=== PATIENT | female | born 1995 | race Caucasian/White ===

== ENCOUNTER 2020-02-28 18:44 | Emergency (ER) | payer MEDICAID ==
[~2020-02-28] VITALS: Ht 165.1 cm; Wt 59.0 kg
[2020-02-28 19:40] VITALS: BP 115/59
--- NOTE | 2020-02-28 20:13 | PHYS DOC ---
Past Medical History Past Medical History: Asthma Past Surgical History: No Surgical History Smoking Status: Never Smoker Alcohol Use: None General Adult EDM: Chief Complaint: EYE PROBLEMS HPI: HPI: Patient is a 24 year old female who presents with left lower eyelid swelling and drainage that began yesterday. Patient denies any vision loss. Review of Systems: Review of Systems: Constitutional: Denies fever or chills. [] Eyes: Reports left lower eyelid swelling and drainage. Denies change in visual acuity. [] Musculoskeletal: Denies back pain or joint pain. [] Integument: Denies rash. [] Neurologic: Denies headache, focal weakness or sensory changes. [] Psychiatric: Denies depression or anxiety. [] Heart Score: Risk Factors: Risk Factors: DM, Current or recent (<one month) smoker, HTN, HLP, family history of CAD, obesity. Risk Scores: Score 0 - 3: 2.5% MACE over next 6 weeks - Discharge Home Score 4 - 6: 20.3% MACE over next 6 weeks - Admit for Clinical Observation Score 7 - 10: 72.7% MACE over next 6 weeks - Early Invasive Strategies Physical Exam: PE: Constitutional: Well developed, well nourished, no acute distress, non-toxic appearance. [] Eyes: PERRLA, EOMI, left lower eyelid inner aspect with swelling suspicious of an internal stye. There is slight erythema on the left lower exterior eyelid. There is no obvious fluctuance on the left lower eyelid. Skin: Warm, dry, no erythema, no rash. [] Back: No tenderness, no CVA tenderness. [] Extremities: No tenderness, no cyanosis, no clubbing, ROM intact, no edema. [] Neurologic: Alert and oriented X 3, normal motor function, normal sensory function, no focal deficits noted. [] Psychologic: Affect normal, judgement normal, mood normal. [] Current Patient Data: Vital Signs: Vital Signs Date Time Temp Pulse Resp B/P (MAP) Pulse Ox O2 Delivery O2 Flow Rate FiO2 02/28/20 19:40 97.7 77 18 115/59 (77) 98 Room Air 97.7 EKG: EKG: [] Radiology/Procedures: Radiology/Procedures: [] Course & Med Decision Making: Course & Med Decision Making Pertinent Labs and Imaging studies reviewed. (See chart for details) Patient has an internal stye to the left lower eyelid. Warm compresses recommended to the area. Erythromycin prescription given. Follow-up with terminal press operator in 1 to 2 weeks Ranulfo Disclaimer: Ranulfo Disclaimer: This electronic medical record was generated, in whole or in part, using a voice recognition dictation system. Departure Departure Impression: Primary Impression: Hordeolum internum left lower eyelid Disposition: HOME, SELF-CARE Condition: STABLE Referrals: NO PCP (PCP) ARTHUR NOBLES MD follow up in 1-2 weeks Patient Instructions: Sty Additional Instructions: You have a stye to the left lower eyelid. Apply warm compresses to the area 3 t imes a day and as needed. Use the prescribed erythromycin as ordered. Follow- up with the provided terminal press operator in 1 to 2 weeks if symptoms persist. Maintain very good hand hygiene. Scripts Erythromycin Base (Erythromycin) 1 Gm Oint...g. 1 APPLIC OS Q4HRS W/A, #1 MISC Apply half an inch to the left eye every 4 hours while awake for 7 days Prov: CARTER MCCALLUM APRN 02/28/20 Justicifation of Admission Dx: Justifications for Admission: Justification of Admission Dx: N/A CARTER MCCALLUM APRN Feb 28, 2020 20:13
[2020-02-28] MEDS ORDERED: ERYT1OIN6 OS (20:21)
== END 2020-02-28 20:42 | disposition home or self-care (01) ==
LOC: ER 18:44
DX: H00.025 Hordeolum internum left lower eyelid (principal); J45.909 Unspecified asthma, uncomplicated
CPT/HCPCS: 99283

== ENCOUNTER 2020-04-25 19:20 | Emergency (ER) | payer MEDICAID, OTHER ==
[~2020-04-25] VITALS: Ht 165.1 cm; Wt 62.0 kg
[~2020-04-25 19:20] MED LIST: ERYT1OIN6 OS
[2020-04-25 20:08] VITALS: BP 101/54
[2020-04-25] MEDS ORDERED: LIDOCAINE WITH 8.4% SOD BICARB 3 ML DISP.SYRIN. INJ ONE (20:15)
[2020-04-25] MEDS ORDERED: CEPH500T PO (20:45)
[2020-04-25] MEDS ORDERED: HYDR-3164 PO (20:45)
--- NOTE | 2020-04-25 20:46 | PHYS DOC ---
Past Medical History Past Medical History: Asthma (CARTER MCCALLUM APRN) Past Surgical History: No Surgical History (CARTER MCCALLUM APRN) Smoking Status: Never Smoker Alcohol Use: None (CARTER MCCALLUM APRN) General Adult EDM: Chief Complaint: ABSCESS HPI: HPI: Patient is a 25 year old female who presents to the ED today with left axilla abscess for 5 days. Patient reports putting warm compresses to the region with no improvement. Denies any fever. Reports previous history of buttock abscesses. (CARTER MCCALLUM APRN) Review of Systems: Review of Systems: Constitutional: Denies fever or chills. [] Musculoskeletal: Denies back pain or joint pain. [] Integument: reports left axilla abscess Neurologic: Denies headache, focal weakness or sensory changes. [] Psychiatric: Denies depression or anxiety. [] (CARTER MCCALLUM APRN) Heart Score: Risk Factors: Risk Factors: DM, Current or recent (<one month) smoker, HTN, HLP, family history of CAD, obesity. Risk Scores: Score 0 - 3: 2.5% MACE over next 6 weeks - Discharge Home Score 4 - 6: 20.3% MACE over next 6 weeks - Admit for Clinical Observation Score 7 - 10: 72.7% MACE over next 6 weeks - Early Invasive Strategies (CARTER MCCALLUM APRN) Current Medications: Current Medications Medications (Trade) Dose Ordered Sig/Kayla Start Time Stop Time Status Last Admin Dose Admin Lidocaine HCl (Buffered Lidocaine 1%) 3 ml 1X ONCE 04/25/20 20:15 04/25/20 20:16 04/25/20 20:07 3 ML (CARTER MCCALLUM APRN) Allergies: Allergies: Allergies Coded Allergies Type Severity Reaction Last Updated Verified ciprofloxacin Allergy Intermediate 02/28/20 Yes (CARTER MCCALLUM APRN) Physical Exam: PE: Constitutional: Well developed, well nourished, no acute distress, non-toxic appearance. [] Skin: Warm, dry, left axilla with an indurated area approximately 2 x 1 cm with some fluctuance and surrounding cellulitis. Back: No tenderness, no CVA tenderness. [] Extremities: No tenderness, no cyanosis, no clubbing, ROM intact, no edema. [] Neurologic: Alert and oriented X 3, normal motor function, normal sensory function, no focal deficits noted. [] Psychologic: Affect normal, judgement normal, mood normal. [] (CARTER MCCALLUM APRN) Current Patient Data: Vital Signs: Vital Signs Date Time Temp Pulse Resp B/P (MAP) Pulse Ox O2 Delivery O2 Flow Rate FiO2 04/25/20 19:50 98.3 85 16 101/54 (70) 98 Room Air 98.3 (CARTER MCCALLUM APRN) EKG: EKG: [] (CARTER MCCALLUM APRN) Radiology/Procedures: Radiology/Procedures: Indication: abscess of the left axilla Procedure: The patient was positioned appropriately. Local anesthesia was 1% of buffered lidocaine. An incision was then made over the apex of the lesion with an 11 blade and moderate amount of bloody purulent material was expressed. The drainage cavity was irrigated and covered with sterile gauze. The patients tetanus status updated as needed. The patient tolerated the procedure well. Complications: none.[] (CARTER MCCALLUM APRN) Course & Med Decision Making: Course & Med Decision Making Pertinent Labs and Imaging studies reviewed. (See chart for details) This is a 25-year-old female patient presenting to the ED today with left axilla abscess with surrounding cellulitis. Abscess was drained by me as noted in procedures. Was put on cephalexin. Provided follow-up information. Provided wound care instructions. Tetanus is up-to-date. (CARTER MCCALLUM APRN) Course & Med Decision Making I have reviewed the PA/ASSEMBLER SEMICONDUCTOR's note and Plan of Care. I was available for consultation as needed during the patient's visit in the emergency department. I agree with the clinical impression, plans and disposition. (YVETTE GEORGE MD) Dragon Disclaimer: Dragon Disclaimer: This electronic medical record was generated, in whole or in part, using a voice recognition dictation system. (CARTER MCCALLUM APRN) Departure Departure Impression: Primary Impression: Abscess of axilla, left Additional Impression: Cellulitis of axilla, left Disposition: 01 DC HOME SELF CARE/HOMELESS Condition: STABLE Referrals: NO PCP (PCP) SHADI STEWART MD follow up in 2 weeks Patient Instructions: Abscess, Cellulitis, [id number] Additional Instructions: You have an abscess with cellulitis on the left axilla that was drained in the emergency room. Take the prescribed antibiotics until completed. Follow-up with your own primary care doctor or the provided general surgeon in 2 weeks Scripts Hydrocodone/Apap 5-325 (NORCO 5-325 TABLET) 1 Each Tablet 1 TAB PO Q6HRS, #10 TAB Prov: CARTER MCCALLUM APRN 04/25/20 Cephalexin (CEPHALEXIN) 500 Mg Tablet 1 TAB PO TID, #30 TAB Prov: CARTER MCCALLUM APRN 04/25/20 CARTER MCCALLUM APRN Apr 25, 2020 20:45 YVETTE GEORGE MD Apr 25, 2020 22:25
== END 2020-04-25 20:54 | disposition home or self-care (01) ==
LOC: ER 19:20
DX: L02.412 Cutaneous abscess of left axilla (principal); L03.112 Cellulitis of left axilla; Z88.1 Allergy status to other antibiotic agents; J45.909 Unspecified asthma, uncomplicated
CPT/HCPCS: 10060; 99283; J3490

== ENCOUNTER 2020-12-15 14:18 | Emergency (ER) | payer OTHER ==
[~2020-12-15] VITALS: Ht 165.1 cm; Wt 59.1 kg
[~2020-12-15 14:18] MED LIST changes: +CEPH500T PO; +HYDR-3164 PO
--- NOTE | 2020-12-15 17:26 | RAD ---
Exam Date: 12/15/2020 5:16 PM XR CHEST 2V Indication: Reason: cough / Spl. Instructions: / History: FINDINGS/ IMPRESSION: The cardiac silhouette and pulmonary vasculature are within normal limits. There is no focal consolidation, pleural effusion or pneumothorax. The visualized osseous structures are intact. Electronically signed by: Pierre Dunn MD (12/15/2020 5:24 PM) [facility]
[2020-12-15] MEDS ORDERED: VENTOLIN HFA18 GM INH (17:36)
[2020-12-15] MEDS ORDERED: FLUT10.6 IH (17:36)
[2020-12-15] MEDS ORDERED: PRED50TA PO (17:36)
[2020-12-15] MEDS ORDERED: BENZ100C PO (17:36)
--- NOTE | 2020-12-15 17:36 | PHYS DOC ---
Past Medical History Past Medical History: Asthma Past Surgical History: No Surgical History Smoking Status: Never Smoker Alcohol Use: Occasionally General Adult EDM: Chief Complaint: COUGH HPI: HPI: 25-year-old female past medical history significant for asthma and seasonal allergies, presents the ED with complaints of nonproductive cough, intermittent but worsening for the past 2 weeks with posttussive emesis, runny nose and nasal congestion stating, " my asthma has been acting up the past few weeks, my chest garcia after a cough and I get cramps in my stomach when coughing." No relief with albuterol inhaler or nebulizer treatments at home. Primary care physician at [facility]. No history of prednisone for patient's asthma (pt states "what's that?"). Has never been admitted for her asthma. Works at [employer] (previously [employer]no known h/o Covid but admits exposure is possible. Denies any associated loss of taste or smell, hemoptysis, sore throat, fatigue, myalgias, nausea, vomiting or diarrhea. Reports LMP was last Wednesday. Denies any tobacco use. Review of Systems: Review of Systems: Constitutional: Denies fever or chills. [] Eyes: Denies change in visual acuity or eye discharge HENT: Denies earache or sore throat. [] Respiratory: Denies hemoptysis or shortness of breath or increased work of breathing Cardiovascular: Denies chest pain or syncope GI: Denies abdominal pain, nausea, vomiting, : Denies dysuria or vaginal bleeding Musculoskeletal: Denies back pain or joint pain. [] Integument: Denies rash or diaphoresis Neurologic: Denies headache, focal weakness or sensory changes. [] Psychiatric: Denies depression or anxiety. [] Heart Score: C/O Chest Pain: No Risk Factors: Risk Factors: DM, Current or recent (<one month) smoker, HTN, HLP, family history of CAD, obesity. Risk Scores: Score 0 - 3: 2.5% MACE over next 6 weeks - Discharge Home Score 4 - 6: 20.3% MACE over next 6 weeks - Admit for Clinical Observation Score 7 - 10: 72.7% MACE over next 6 weeks - Early Invasive Strategies Allergies: Allergies: Allergies Coded Allergies Type Severity Reaction Last Updated Verified ciprofloxacin Allergy Intermediate 02/28/20 Yes Physical Exam: PE: Constitutional: Well developed, well nourished, no acute distress, non-toxic appearance. HENT: Normocephalic, atraumatic, Eyes: EOMI, conjunctiva normal, no discharge. Neck: Normal range of motion, supple, Cardiovascular: S1/2 present, regular rhythm Lungs & Thorax: Speaking in full sentences, bilateral equal chest rise, no tachypnea or increased work of breathing, no wheezing/rales/crackles, no expiratory or inspiratory wheezing Abdomen: soft, no tenderness, Skin: Warm, dry, no erythema, no rash. [] Extremities: No tenderness, no cyanosis, no lower extremity edema Neurologic: Alert and oriented X 3, normal motor function, normal sensory function, no focal deficits noted. [] Psychologic: Affect normal, judgement normal, mood normal. [] Current Patient Data: Vital Signs: Vital Signs Date Time Temp Pulse Resp B/P (MAP) Pulse Ox O2 Delivery O2 Flow Rate FiO2 12/15/20 16:12 12 115/75 (88) 98 EKG: EKG: [] Radiology/Procedures: Radiology/Procedures: IMAGING REPORT Signed PATIENT: CHAIM GONZALESUNT: [id number] : 1995 LOCATION: ER AGE: 25 SEX: F EXAM STATUS: REG ER ORD. PHYSICIAN: MACARIO BOLES DO REASON: cough PROCEDURE: CHEST PA & LATERAL Exam Date: 12/15/2020 5:16 PM XR CHEST 2V Indication: Reason: cough / Spl. Instructions: / History: FINDINGS/ IMPRESSION: The cardiac silhouette and pulmonary vasculature are within normal limits. There is no focal consolidation, pleural effusion or pneumothorax. The visualized osseous structures are intact. Electronically signed by: Mark Dunn MD (12/15/2020 5:24 PM) [facility] DICTATED and SIGNED BY: MARK DUNN MD DATE: 12/15/20 [id number] 0 Course & Med Decision Making: Course & Med Decision Making Pertinent Labs and Imaging studies reviewed. (See chart for details) PERC rule for pulmonary embolus 0 criteria No need for further workup, as <2% chance of PE. If no criteria are positive and clinicians pre-test probability is <15%, PERC Rule criteria are satisfied. COVID-19 CRITERIA: The patient was evaluated during the global COVID-19 pandemic, and that diagnosis was suspected/considered upon their initial presentation. Their evaluation, treatment and testing was consistent with current guidelines for patients who present with complaints or symptoms that may be related to COVID-19. Concern for nonproductive cough in the setting of allergy season, cannot exclude Covid, test pending. X-ray with no infiltrates. Will treat for asthma with prednisone, albuterol and Flovent. Will discharge home with strict ED return precautions were given for syncope, chest pain, dyspnea, hemoptysis or neurologic deficits. Encouraged urgent outpatient follow-up with PMD and pulmonology for definitive management. Life-threatening processes were considered but are low suspicion at this time, given history, physical exam and ED workup. Pt was educated on all prescription medications and adverse effects. All patient's questions were answered and pt was stable at time of discharge. Life/limb-threatening differential includes but is not limited to, foreign body, infection/sepsis, congestive heart failure or pulmonary edema, lung cancer intrathoracic mass, bronchoconstriction, asthma/COPD/lung disease exacerbation, pneumothorax or hemothorax, pulmonary emboli, autoimmune/neurologic disease or toxidrome. I spoken with the patient and her caregivers. I explained the patient's condition, diagnoses and treatment plan based on the information available to me at this time. I have answered the patient and her caregiver's questions and addressed any concerns. The patient and her caregivers have a good understanding of patient's diagnosis, condition and treatment plan as can be ex pected at this point. Vital signs have been stable. Patient's condition is stable and appropriate for discharge from the emergency department. Patient will pursue further outpatient evaluation with primary care physician or other designated or consulting physician as outlined in the discharge instructions. The patient and/or caregivers are agreeable to this plan of care and follow-up instructions have been explained in detail. The patient and/or caregivers have received these instructions in written form and have expressed an understanding of the discharge instructions. The patient and/or caregivers are aware that any significant change of condition or worsening of symptoms should prompt immediate return to this or the closest emergency department or call to 911. Ranulfo Disclaimer: Ranulfo Disclaimer: This electronic medical record was generated, in whole or in part, using a voice recognition dictation system. Departure Departure Impression: Primary Impression: Person under investigation for COVID-19 Additional Impressions: Cough Asthma Disposition: HOME / SELF CARE / HOMELESS Condition: STABLE Referrals: NO PCP (PCP) Follow-up with your PCP in 24 to 48 hours or FOLLOW UP WITH FAMILY MEDICINE: [address], [address] [place] [address] Patient Instructions: Asthma, Adult, Cough, Adult Additional Instructions: Return to ED immediately if your oxygen level drops below 90% (purchase a pulse oximetry at a medical supply store), difficulties breathing including rapid breathing or increased work of breathing (skin sucking under ribs), chest pain or stroke-like symptoms (facial droop, speech changes, arm/leg weakness). FOLLOW UP WITH PULMONOLOGY: For definitive management of [facility] [address] [place] [address] EMERGENCY DEPARTMENT GENERAL DISCHARGE INSTRUCTIONS Thank you for coming to [facility] Emergency Department (ED) today and trusting us with you care. We trust that you had a positive experience in our Emergency Department. If you wish to speak to the department management, you may call the Director at [phone]. YOUR FOLLOW UP INSTRUCTIONS ARE FOLLOWS: 1. Do you have a private Doctor? If you do not have a private doctor, please ask for a resource list of physicians or clinics that may be able to assist you with follow up care. 2. The Emergency Physicain has interpreted your x-rays. The X-Ray specialist will also review them. If there is a change in the findings, you will be notified in 48 hours when at all possible. 3. A lab test or culture has been done, your results will be reviewed and you will be notified if you need a change in treatment. ADDITIONAL INSTRUCTIONS AND INFORMATION: 1. Your care today has been supervised by a physician who is specially trained in emergency care. Many problems require more than one evaluation for a complete diagnosis and treatment. We recommend that you schedule your follow up appointment as recommended to ensure complete treatment of you illness or injury. If you are unable to obtain follow up care and continue to have a problem, or if your condition worsens, we recommend that you return to the ED. 2. We are not able to safely determine your condition over the phone nor are we able to give sound medical advice over the phone. For these safety reasons, if you call for medical advice we will ask you to come to the ED for further evaluation. 3. If you have any questions regarding these discharge instructions please call the ED at [phone]. SAFETY INFORMATION: In the interest of safety, wellness, and injury prevention; we encourage you to wear your sealbelt, if you smoke; quite smoking, and we encourage family to use a protective helmet for bicycling and other sporting events that present an increased risk for head injury. IF YOUR SYMPTOMS WORSEN OR NEW SYMPTOMS DEVELOP, OR YOU HAVE CONCERNS ABOUT YOUR CONDITION; OR IF YOUR CONDITION WORSENS WHILE YOU ARE WAITING FOR YOUR FOLLOW UP APPOINTMENT; EITHER CONTACT YOUR PRIMARY CARE DOCTOR, THE PHYSICIAN WHOSE NAME AND NUMBER YOU WERE GIVEN, OR RETURN TO THE ED IMMEDIATELY. Scripts Benzonatate (TESSALON PERLE) 100 Mg Capsule 1 CAP PO TID for cough for 7 Days, #21 CAP Prov: MACARIO BOLES DO 12/15/20 Albuterol Sulfate (VENTOLIN HFA INHALER) 18 Gm Hfa.aer.ad 2 PUFF INH QID for FOR ASTHMA, #1 INHALER 0 Refills Prov: MACARIO BOLES DO 12/15/20 Fluticasone Propionate (FLOVENT 44MCG HFA) 10.6 Gm Aer.w.adap 2 PUFF IH BID for 30 Days, #1 INHALER 0 Refills Prov: MACARIO BOLES DO 12/15/20 Prednisone (PREDNISONE) 50 Mg Tablet 1 TAB PO DAILY for 5 Days, #5 TAB Prov: MACARIO BOLES DO 12/15/20 MACARIO BOLES DO Dec 15, 2020 17:36
[2020-12-15 17:37] VITALS: BP 103/65
--- NOTE | 2020-12-17 08:34 | NUR ---
IP: Informed pt of negative covid test. Pt verbalized understanding.
== END 2020-12-15 18:03 | disposition home or self-care (01) ==
LOC: ER 14:18
DX: R09.89 Other specified symptoms and signs involving the circulatory and respiratory systems (principal); R05 Cough; R09.81 Nasal congestion; J45.909 Unspecified asthma, uncomplicated; Z88.1 Allergy status to other antibiotic agents
CPT/HCPCS: 71046; 99284; U0003; U0005

== ENCOUNTER 2021-06-29 14:30 | Emergency (ER) | payer OTHER ==
[~2021-06-29] VITALS: Ht 165.1 cm; Wt 65.0 kg
[~2021-06-29 14:30] MED LIST changes: +BENZ100C PO; +FLUT10.6 IH; +PRED50TA PO; +VENTOLIN HFA18 GM INH
[2021-06-29 15:40] VITALS: BP 96/61
--- NOTE | 2021-06-29 16:14 | RAD ---
EXAM: 3 views of the left ankle DATE: 06/29/2021 3:56 PM INDICATION: Reason: pain after fall / Spl. Instructions: / History: COMPARISON: No Prior FINDINGS: No acute fracture or dislocation. Ankle mortise is congruent. Talar dome is intact. Joint spaces are preserved without significant degenerative/proliferative change. No significant soft tissue swelling. IMPRESSION: No acute fracture or dislocation. Electronically signed by: Godfrey Suarez MD (06/29/2021 4:11 PM) [facility]
--- NOTE | 2021-06-29 16:38 | PHYS DOC ---
Past Medical History Past Medical History: Asthma Past Surgical History: No Surgical History Smoking Status: Never Smoker Alcohol Use: None General Adult EDM: Chief Complaint: ANKLE PROBLEM HPI: HPI: Patient is a 26-year-old female presents emergency department concerning left ankle pain for the past 4 days after reportedly slipping off a ladder and falling to the ground twisting her ankle 4 days ago while she was at work. Patient reports she has been taking Tylenol for pain and it does not seem to be getting better. Patient states she needs a work excuse for today and tomorrow. Patient denies other physical complaints or physical concerns. Review of Systems: Review of Systems: 14 body systems of review of systems have been reviewed. See HPI for pertinent positives and negative responses, otherwise all other systems are negative, nonpertinent or noncontributory. Constitutional: Negative except as outlined in HPI above. Skin: Negative except as outlined in HPI above. Eyes: Negative except as outlined in HPI above. HENT: Negative except as outlined in HPI above. Respiratory: Negative except as outlined in HPI above. Cardiovascular: Negative except as outlined in HPI above. GI: Negative except as outlined in HPI above. : Negative except as outlined in HPI above. Musculoskeletal: Negative except as outlined in HPI above. Integument: Negative except as outlined in HPI above. Neurologic: Negative except as outlined in HPI above. Endocrine: Negative except as outlined in HPI above. Lymphatic: Negative except as outlined in HPI above. Psychiatric: Negative except as outlined in HPI above. Heart Score: C/O Chest Pain: No Risk Factors: Risk Factors: DM, Current or recent (<one month) smoker, HTN, HLP, family history of CAD, obesity. Risk Scores: Score 0 - 3: 2.5% MACE over next 6 weeks - Discharge Home Score 4 - 6: 20.3% MACE over next 6 weeks - Admit for Clinical Observation Score 7 - 10: 72.7% MACE over next 6 weeks - Early Invasive Strategies Allergies: Allergies: Allergies Coded Allergies Type Severity Reaction Last Updated Verified ciprofloxacin Allergy Intermediate 02/28/20 Yes Physical Exam: PE: Constitutional: Well developed, well nourished, no acute distress, non-toxic appearance. 26-year-old female in no apparent distress. HENT: Normocephalic, atraumatic. Eyes: Conjunctiva normal, no discharge. Neck: Normal range of motion, no stridor. Cardiovascular: No cyanosis appreciated, distal cap refill less than 2 seconds. Lungs & Thorax: Patient is in no respiratory distress, no audible adventitious lung sounds appreciated. Abdomen: Nontender, no abnormalities noted. Skin: Warm, dry, no erythema, no rash. Back: No tenderness, no deformities. Extremities: No tenderness, no cyanosis, no clubbing, ROM intact, no edema. Except for left ankle, pain to palpation of the lateral malleolar skin surfaces, no bruising, no ecchymosis, no deformities, no crepitus cruciated, limited passive range of motion of ankle joint related to patient's complaint of pain, 2+ dorsalis pedis pulses and equal bilaterally, distal cap refill less than 2 seconds, full flexion of the toes appreciated. Neurologic: Alert and oriented X 3, normal motor function, normal sensory function, no focal deficits noted. Psychologic: Affect normal, judgement normal, mood normal. Current Patient Data: Vital Signs: Vital Signs Date Time Temp Pulse Resp B/P (MAP) Pulse Ox O2 Delivery O2 Flow Rate FiO2 06/29/21 15:40 98.2 90 16 96/61 (73) 99 Room Air 98.2 EKG: EKG: [] Radiology/Procedures: Radiology/Procedures: STATUS: REG ER ORD. PHYSICIAN: VIJAYA VELÁSQUEZ APRN REASON: pain after fall PROCEDURE: ANKLE LEFT 3V EXAM: 3 views of the left ankle DATE: 06/29/2021 3:56 PM INDICATION: Reason: pain after fall / Spl. Instructions: / History: COMPARISON: No Prior FINDINGS: No acute fracture or dislocation. Ankle mortise is congruent. Talar dome is intact. Joint spaces are preserved without significant degenerative/proliferative change. No significant soft tissue swelling. IMPRESSION: No acute fracture or dislocation. Electronically signed by: Gdofrey Suarez MD (06/29/2021 4:11 PM) NICOL Course & Med Decision Making: Course & Med Decision Making Pertinent Labs and Imaging studies reviewed. (See chart for details) 26-year-old female, vital signs reviewed, presents to the emergency department concerning left ankle pain for the past 4 days after reported fall and twisting ankle. Physical examination is nonconcerning however patient is asking for work excuse, with patient's explanation of events will order x-ray of left ankle. Left ankle x-ray unremarkable, no fracture per house radiologist interpretation, will Bakari wrap, discussed findings with patient, use of NSAID therapy, patient is asking for work excuse for today and tomorrow, will provide work excuse, discussed with patient follow-up with primary care for ongoing aches and pains, patient verbal understanding of and is amenable to ED discharge planning. Discussed with the patient all findings and diagnostic testing as well as the need to follow-up with their primary care provider for further evaluation and treatment or return to the ED if any new or worsening symptoms. Strict return precautions were also discussed at length, the patient voiced understanding and agreement with the discharge planning. The patient was nontoxic in appearance, in no apparent distress, and hemodynamically stable at the time of disposition. Dragon Disclaimer: Dragmary ann Disclaimer: This electronic medical record was generated, in whole or in part, using a voice recognition dictation system. Departure Departure Impression: Primary Impression: Left ankle sprain Qualified Codes: S93.402A - Sprain of unspecified ligament of left ankle, initial encounter Disposition: HOME / SELF CARE / HOMELESS Condition: GOOD Referrals: NO PCP (PCP) Patient Instructions: Elastic Bandage and RICE Additional Instructions: You were seen today in the emergency department for left ankle pain after a fall from 4 days ago. An x-ray was performed today, there were no signs of broken bones. An Bakari wrap was placed in the emergency department today. As we discussed RICE therapy, rest, ice, compression, elevation, I am giving you a work excuse for today and tomorrow please use this time to elevate and rest your injury. Use ice packs 30 minutes on 30 minutes off for the next 24 to 72 hours. Please follow-up with your primary care provider for reevaluation and ongoing pain management. Thank you for visiting our Emergency Department. It was a pleasure taking care of you today in the emergency department and we appreciate you trusting us with your care. If any additional problems come up don't hesitate to return to visit us. Please follow up with your primary care provider so they can plan additional care if needed and know about the problem that you had. If symptoms worsen come back to the Emergency Department. Any concerning symptoms that start such as chest pain, shortness of air, weakness or numbness on one side of the body, running high fevers or any other concerning symptoms return to the ER. EMERGENCY DEPARTMENT GENERAL DISCHARGE INSTRUCTIONS Thank you for coming to [facility] Emergency Department (ED) today and trusting us with you care. We trust that you had a positive experience in our Emergency Department. If you wish to speak to the department management, you may call the Director at [phone]. YOUR FOLLOW UP INSTRUCTIONS ARE FOLLOWS: 1. Do you have a private Doctor? If you do not have a private doctor, please ask for a resource list of physicians or clinics that may be able to assist you with follow up care. 2. The Emergency Physicain has interpreted your x-rays. The X-Ray specialist will also review them. If there is a change in the findings, you will be notified in 48 hours when at all possible. 3. A lab test or culture has been done, your results will be reviewed and you will be notified if you need a change in treatment. ADDITIONAL INSTRUCTIONS AND INFORMATION: 1. Your care today has been supervised by a physician who is specially trained in emergency care. Many problems require more than one evaluation for a complete diagnosis and treatment. We recommend that you schedule your follow up appointment as recommended to ensure complete treatment of you illness or injury. If you are unable to obtain follow up care and continue to have a problem, or if your condition worsens, we recommend that you return to the ED. 2. We are not able to safely determine your condition over the phone nor are we able to give sound medical advice over the phone. For these safety reasons, if you call for medical advice we will ask you to come to the ED for further evaluation. 3. If you have any questions regarding these discharge instructions please call the ED at [phone]. SAFETY INFORMATION: In the interest of safety, wellness, and injury prevention; we encourage you to wear your sealbelt, if you smoke; quite smoking, and we encourage family to use a protective helmet for bicycling and other sporting events that present an increased risk for head injury. IF YOUR SYMPTOMS WORSEN OR NEW SYMPTOMS DEVELOP, OR YOU HAVE CONCERNS ABOUT YOUR CONDITION; OR IF YOUR CONDITION WORSENS WHILE YOU ARE WAITING FOR YOUR FOLLOW UP APPOINTMENT; EITHER CONTACT YOUR PRIMARY CARE DOCTOR, THE PHYSICIAN WHOSE NAME AND NUMBER YOU WERE GIVEN, OR RETURN TO THE ED IMMEDIATELY. VIJAYA VELÁSQUEZ APRN Jun 29, 2021 16:38
== END 2021-06-29 17:10 | disposition home or self-care (01) ==
LOC: ER 14:30
DX: S93.402A Sprain of unspecified ligament of left ankle, initial encounter (principal); J45.909 Unspecified asthma, uncomplicated; Z88.1 Allergy status to other antibiotic agents; W11.XXXA Fall on and from ladder, initial encounter; Y93.89 Activity, other specified; Y92.69 Other specified industrial and construction area as the place of occurrence of the external cause; Y99.0 Civilian activity done for income or pay
CPT/HCPCS: 73610; 99283; A6450